=== PATIENT | male | born 2000 | race Caucasian/White ===

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

== ENCOUNTER 2022-03-26 22:46 | Emergency (ER) | payer BC ==
[2022-03-26 23:03] VITALS: BP 154/97; TEMP 99.6; BMI 25.0
[2022-03-26] MEDS ORDERED: ACETAMINOPHEN 500 MG TABLET (FP) PO ONE (23:42)
[2022-03-26] MEDS ORDERED: DEXAMETHASONE SOD PHOSPHATE 10 MG/1 ML VIAL IVPUSH ONE (23:42)
[2022-03-26] MEDS ORDERED: IBUPROFEN 600 MG TABLET (FP) PO ONE ×2 (23:42→23:47)
[2022-03-26] MEDS ORDERED: DEXAMETHASONE SOD PHOSPHATE 10 MG/1 ML VIAL ONE (23:47)
[2022-03-26] MEDS ORDERED: ACETAMINOPHEN 325 MG TABLET (FP) ONE (23:48)
[2022-03-26] MEDS ORDERED: DEXAMETHASONE SOD PHOSPHATE 10 MG/1 ML VIAL PO ONE (23:48)
[2022-03-27 01:13] VITALS: PULSE 103; RESP 18
== END 2022-03-27 01:28 | disposition home or self-care (01) ==
LOC: JER 22:46
DX: U07.1 COVID-19 (principal)
CPT/HCPCS: 99283-25; J1100

== ENCOUNTER 2023-02-16 21:02 | Emergency (ER) | payer BC ==
[2023-02-16 21:08] VITALS: BP 154/98; PULSE 90; RESP 20; TEMP 98.5; BMI 26.6
[2023-02-16] MEDS ORDERED: DEXAMETHASONE SOD PHOSPHATE 10 MG/1 ML VIAL IM ONE (22:32)
[2023-02-16] MEDS ORDERED: DEXAMETHASONE SOD PHOSPHATE 10 MG/1 ML VIAL ONE (22:39)
== END 2023-02-16 22:50 | disposition home or self-care (01) ==
LOC: JERFT 21:02
PROC: 3E023GC Introduction of Other Therapeutic Substance into Muscle, Percutaneous Approach (ICD-10-PCS; principal; 2023-02-16)
DX: U07.1 COVID-19 (principal); J02.9 Acute pharyngitis, unspecified
CPT/HCPCS: 0241U-QW; 99284-25; J1100